=== PATIENT | male | born 1985 | race Caucasian/White ===

== ENCOUNTER → 2018-05-05 07:41 | Outpatient (CLI) | payer OTHER, SELFPAY ==
--- NOTE | 2018-05-05 07:43 | DI.US.S_ITS ---
PROCEDURE: US CHEST COMPARISON: None. INDICATIONS: LUMP LEFT/MID BACK FINDINGS: Complex, predominantly solid oblong soft tissue mass present corresponding to the palpable abnormality within the left medial mid back measuring 3.4 x 0.8 x 3.4 cm. No vascularity is present. IMPRESSION: Nonspecific complex, predominantly solid-appearing subcutaneous soft tissue mass corresponding to the palpable abnormality. Differential would include both benign and malignant etiology. Recommend dermatology consultation and clinical management. Dictated by: Herminio BRANCH Interpreted: Christopher Geronimo MD on 05/05/2018 at 8:25 Approved by: Christopher Geronimo M.D. on 05/05/2018 at 11:27
== END ==
PROVIDERS: Visit Provider Registered Nurse
DX: D17.1 Benign lipomatous neoplasm of skin and subcutaneous tissue of trunk (principal)
CPT/HCPCS: 76604

== ENCOUNTER → 2019-06-13 07:01 | Outpatient (CLI) | payer OTHER, SELFPAY ==
[2019-06-13 08:00] LABS: Alanine Aminotransferase 83 IU/L (21-72); Albumin 5.1 g/dL (3.5-5.0); Albumin Globulin Ratio 1.8 (1.0-2.8); Alkaline Phosphatase 70 U/L (38-126); Aspartate Aminotransferase 44 IU/L (17-59); Bilirubin Total 0.7 mg/dL (0.2-1.3); Blood Urea Nitrogen 16 mg/dL (9-20); Calcium 10.1 mg/dL (8.4-10.2); Carbon Dioxide 30 mmol/L (22-32); Chloride 100 mmol/L (98-107); Cholesterol 210 mg/dL (140-199); Estimated Glomerular Filt Rate > 60.0 mL/min (>60); Globulin 2.8 g/dL (1.7-4.1); Glucose 117 mg/dL (70-100); HDL Cholesterol 50 mg/dL (40-60); HEMOLYSIS < 15 (0-50); LDL Cholesterol Calculated 142 mg/dL (<100); Potassium 4.2 mmol/L (3.4-5.1); Sodium 141 mmol/L (137-145); Total Protein 7.9 g/dL (6.3-8.2); Triglycerides 91 mg/dL (35-150)
== END ==
PROVIDERS: PCP Family Medicine; Visit Provider Family Medicine
DX: E78.5 Hyperlipidemia, unspecified (principal)
CPT/HCPCS: 36415; 80053; 80061

== ENCOUNTER → 2019-06-20 16:19 | Outpatient (CLI) | payer OTHER, SELFPAY ==
[2019-06-20 16:44] LABS: Hemoglobin A1C% w Est Avg Glu 5.1 % (4.0-6.0)
== END ==
PROVIDERS: PCP Family Medicine; Visit Provider Family Medicine
DX: R73.09 Other abnormal glucose (principal)
CPT/HCPCS: 36415; 83036

== ENCOUNTER → 2020-07-04 11:45 | Outpatient (CLI) | payer OTHER, SELFPAY ==
[2020-07-04 13:51] LABS: COVID19 -Nasal RAPID Negative (Negative)
== END ==
PROVIDERS: PCP Family Medicine; Visit Provider Physician Assistant
DX: Z03.818 Encounter for observation for suspected exposure to other biological agents ruled out (principal)
CPT/HCPCS: 87635

== ENCOUNTER → 2020-07-09 10:01 | Outpatient (CLI) | payer OTHER, SELFPAY ==
[2020-07-09 12:02] LABS: COVID19 -Nasal RAPID Negative (Negative)
== END ==
PROVIDERS: PCP Family Medicine; Visit Provider Physician Assistant
DX: Z03.818 Encounter for observation for suspected exposure to other biological agents ruled out (principal)
CPT/HCPCS: 87635

== ENCOUNTER → 2020-11-19 16:15 | Outpatient (CLI) | payer OTHER, SELFPAY ==
--- NOTE | 2020-11-19 16:16 | DI.RAD.S_ITS ---
PROCEDURE: XR KNEE LT 3V INDICATIONS: lump of left knee TECHNIQUE: 3 views of the knee were acquired. COMPARISON: None. FINDINGS: Bones: No fractures or dislocations. No suspicious bony lesions. Soft tissues: No joint effusion. No suspicious soft tissue calcifications. IMPRESSION: No definite radiographic abnormality. If pain persists with conservative management, consider cross sectional imaging such as CT or MRI for further assessment. Dictated by: Herminio Elaine [facility] Interpreted: Roland Mei MD on 11/19/2020 at 16:38 Approved by: Roland Mei M.D. on 11/21/2020 at 10:18
== END ==
PROVIDERS: PCP Family Medicine; Referring Provider Registered Nurse; Visit Provider Registered Nurse
DX: M25.562 Pain in left knee (principal); R22.42 Localized swelling, mass and lump, left lower limb
CPT/HCPCS: 73562

== ENCOUNTER → 2020-12-31 16:09 | Outpatient (CLI) | payer OTHER, SELFPAY ==
--- NOTE | 2020-12-31 | DI.MRI.S_ITS ---
PROCEDURE: MR LUMBAR SPINE WO CON INDICATIONS: Other intervertebral disc displacement TECHNIQUE: Noncontrast sagittal T1 spin echo and T2 fast echo, sagittal STIR, axial T1 and T2 fast spin echo through the lumbar spine. In cases with scoliosis, additional coronal T2 fast spin echo may be performed. COMPARISON: [facility], MR, L-SPINE WITHOUT CONTRAST, 11/16/2009, 9:02. FINDINGS: Image quality: Excellent. Alignment and Curvature: There is normal bony alignment. Bone Marrow: Marrow is of normal overall signal. No acute vertebral body compression fractures. Spinal Cord: Conus medullaris terminates at the L1 level. Visualized cord demonstrates normal signal and size. Paraspinous Soft Tissues: No paravertebral masses. T12-L1: Normal appearance. L1-L2: Moderate loss of disc height is seen. Loss of disc signal is seen. Mild generalized disc bulge is seen. No significant neural foraminal or central canal narrowing can be seen. These imaging findings have progressed compared to the prior study. L2-L3: Normal appearance. L3-L4: Normal appearance. L4-L5: The disc height and disk signal are well-preserved. Mild generalized disc bulge is seen. Mild facet joint hypertrophy is seen. There is mild left-sided and no significant right-sided neural foraminal narrowing seen. Mild central canal narrowing is seen. There is slight progression compared to 2009. L5-S1: Moderate loss of disc height is seen. Loss of disc signal is seen. Moderate disc bulge is seen, with a central/left disc protrusion. Mild facet joint hypertrophy is seen. There is mild right-sided and no significant left-sided neural foraminal narrowing seen. Minimal central canal narrowing is seen. These imaging findings have progressed compared to the prior study. 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 Dictated by: Rei Corcoran M.D. on 12/31/2020 at 16:53 Approved by: Rei Corcoran M.D. on 12/31/2020 at 16:56
--- NOTE | 2020-12-31 16:10 | DI.MRI.S_ITS ---
PROCEDURE: MR KNEE LT WO CON INDICATIONS: left knee pain TECHNIQUE: Noncontrast sagittal PD fast spin echo and T2 fast spin echo with fat saturation, sagittal 3-D FLASH with fat saturation; coronal T1 spin echo and PD fast spin echo with fat saturation, and axial PD fast spin echo with fat saturation through the knee. COMPARISON: None. FINDINGS: Exam degraded by mild motion artifact. Menisci: Medial meniscus intact. Lateral meniscus intact. Cruciate ligaments: Anterior cruciate ligament appears intact. Posterior cruciate ligament appears intact. Medial structures: Mild intrasubstance signal changes thickening and adjacent soft tissue edema involving the ACL. There is focal fluid collection measuring 0.9 x 1.1 cm seen adjacent to the semimembranosus, and extending to the distal pes anserinus insertion. Semimembranosus tendon appears intact. Visualized portions of the pes anserinus tendons appear grossly. Lateral structures: The lateral collateral ligament intact. Biceps femoris tendon appears intact. Popliteus tendon grossly unremarkable. Iliotibial band appears intact. Anterior structures: Minimal distal quadriceps tendinopathy. Medial and lateral patellofemoral ligaments intact. There is mild patellar tendinopathy. Prepatellar and superficial infrapatellar subcutaneous edema/fluid. Bones and cartilage: Marrow: No focal marrow contusion or discrete low signal fracture line. Medial compartment: No focal cartilage defect. Lateral compartment: No focal cartilage defect. Patellofemoral compartment: Mild surface fraying of the cartilage overlying the lateral patellar facet. Femoral trochlear cartilage appears grossly intact. Joint space: No joint effusion. Trace fluid between the semimembranosus and medial gastrocnemius tendons without definite formed cyst. No specific evidence of intra-articular loose body. IMPRESSION: Signal change in and adjacent edema suggestive of low-grade MCL sprain. Somewhat focal fluid collection with adjacent scattered free fluid adjacent to the semimembranosus tendon. Differential includes sequela of partially ruptured or complex Harp's cyst, semimembranosus-tibial collateral (SM-TCL) ligament bursitis. Or, partially ruptured ganglion cysts. Please correlate to exam findings. Mild patellofemoral chondromalacia Dictated by: Christopher Geronimo M.D. on 01/01/2021 at 8:54 Approved by: Christopher Geronimo M.D. on 01/01/2021 at 9:01
== END ==
PROVIDERS: PCP Family Medicine; Referring Provider Registered Nurse; Visit Provider Registered Nurse
DX: M25.562 Pain in left knee (principal); M22.42 Chondromalacia patellae, left knee; M51.26 Other intervertebral disc displacement, lumbar region; M47.816 Spondylosis without myelopathy or radiculopathy, lumbar region; M47.817 Spondylosis without myelopathy or radiculopathy, lumbosacral region
CPT/HCPCS: 72148; 73721

== ENCOUNTER → 2023-03-06 08:24 | Outpatient (CLI) | payer OTHER, SELFPAY ==
[2023-03-06 10:20] LABS: Alanine Aminotransferase 33 IU/L (<50); Albumin 4.4 g/dL (3.5-5.0); Albumin Globulin Ratio 1.8 (1.0-2.8); Alkaline Phosphatase 65 U/L (38-126); Aspartate Aminotransferase 32 IU/L (17-59); BUN Creatinine Ratio 14.6 (6-22); Bilirubin Total 0.9 mg/dL (0.2-1.3); Blood Urea Nitrogen 12 mg/dL (9-20); Calcium 9.2 mg/dL (8.4-10.2); Carbon Dioxide 30 mmol/L (22-32); Chloride 103 mmol/L (98-107); Cholesterol 167 mg/dL (140-199); Estimated Glomerular Filt Rate > 60 mL/min (>60); Globulin 2.5 g/dL (1.7-4.1); Glucose 93 mg/dL (70-100); HDL Cholesterol 46 mg/dL (40-60); HEMOLYSIS < 15 (0-50); LDL Cholesterol Calculated 106 mg/dL (<100); Potassium 4.4 mmol/L (3.4-5.1); Sodium 139 mmol/L (137-145); Total Protein 6.9 g/dL (6.3-8.2); Triglycerides 76 mg/dL (35-150)
[2023-03-06 10:51] LABS: Testosterone 596 ng/dL (132-813)
[2023-03-07 09:30] LABS: Labcorp Hemoglobin (Hb) A1c 5.4 % (4.8-5.6)
== END ==
PROVIDERS: PCP Family Medicine; Referring Provider Family Medicine; Visit Provider Family Medicine
DX: E66.9 Obesity, unspecified (principal); E78.5 Hyperlipidemia, unspecified
CPT/HCPCS: 36415; 80053; 80061; 83036; 84403

== ENCOUNTER → 2024-09-24 08:44 | Outpatient (CLI) | payer OTHER, SELFPAY ==
[2024-09-24 09:41] LABS: Hematocrit 46.2 % (41-53); Hemoglobin 15.8 g/dL (13.5-17.5); Mean Corpuscular HGB Conc 34.1 % (30-36); Mean Corpuscular Hemoglobin 31.5 PG (26-34); Mean Corpuscular Volume 92.5 fL (80-100); Platelet Count 217 X10^3/uL (150-400); Red Cell Distribution Width 12.9 % (11.6-14.8); White Blood Cell Count 7.3 X10^3/uL (4.5-11.0)
[2024-09-24 09:54] LABS: Hemoglobin A1C% w Est Avg Glu 5.2 % (4.0-6.0)
[2024-09-24 09:56] LABS: Alanine Aminotransferase 34 IU/L (<50); Alkaline Phosphatase 79 U/L (38-126); Aspartate Aminotransferase 30 IU/L (17-59); BUN Creatinine Ratio 17.8 (6-22); Bilirubin Total 0.4 mg/dL (0.2-1.3); Blood Urea Nitrogen 16 mg/dL (9-20); Calcium 9.8 mg/dL (8.4-10.2); Chloride 105 mmol/L (98-107); Cholesterol 216 mg/dL (140-199); Estimated Glomerular Filt Rate > 60 mL/min (>60); Glucose 152 mg/dL (70-100); HDL Cholesterol 50 mg/dL (40-60); HEMOLYSIS < 15 (0-50); LDL Cholesterol Calculated 132 mg/dL (<100); Potassium 4.4 mmol/L (3.4-5.1); Sodium 140 mmol/L (137-145); Triglycerides 171 mg/dL (35-150)
[2024-09-24 09:57] LABS: Albumin 4.8 g/dL (3.5-5.0); Albumin Globulin Ratio 1.8 (1.0-2.8); Carbon Dioxide 26 mmol/L (22-32); Globulin 2.6 g/dL (1.7-4.1); Total Protein 7.4 g/dL (6.3-8.2)
[2024-09-24 10:28] LABS: TSH w/ Reflex to FT4 0.89 uIU/mL (0.47-4.68)
[2024-09-24 10:29] LABS: Testosterone 535 ng/dL (132-813)
== END ==
PROVIDERS: PCP Family Medicine; Referring Provider Family Medicine; Visit Provider Family Medicine
DX: Z00.00 Encounter for general adult medical examination without abnormal findings (principal); E78.5 Hyperlipidemia, unspecified; N52.9 Male erectile dysfunction, unspecified; E66.9 Obesity, unspecified; Z82.49 Family history of ischemic heart disease and other diseases of the circulatory system; R73.01 Impaired fasting glucose; G47.33 Obstructive sleep apnea (adult) (pediatric); R53.82 Chronic fatigue, unspecified
CPT/HCPCS: 36415; 80053; 80061; 83036; 84403; 84443; 85027; 86803; 87389

== ENCOUNTER → 2024-12-26 10:55 | Outpatient (CLI) | payer OTHER, SELFPAY ==
[2024-12-26 12:02] LABS: Add Manual Diff / Slide Review NO; Basophils Absolute Auto 0 /uL (0-100); Basophils Percent Auto 0.3 % (0-2); Eosinophils Absolute Auto 100 /uL (0-450); Eosinophils Percent Auto 2.3 % (2-4); Hematocrit 45.1 % (41-53); Hemoglobin 15.4 g/dL (13.5-17.5); Lymphocytes Absolute Auto 1700 /uL (1100-4500); Lymphocytes Percent Auto 26.1 % (25-40); Mean Corpuscular HGB Conc 34.3 % (30-36); Mean Corpuscular Hemoglobin 31.4 PG (26-34); Mean Corpuscular Volume 91.7 fL (80-100); Monocytes Absolute Auto 400 /uL (0-900); Monocytes Percent Auto 5.5 % (3-14); Neutrophils Absolute Auto 4200 /uL (1500-7000); Neutrophils Percent Auto 65.8 % (50-75); Platelet Count 216 X10^3/uL (150-400); Red Blood Cell Count 4.92 X10^6/uL (4.5-5.9); Red Cell Distribution Width 13.3 % (11.6-14.8); White Blood Cell Count 6.4 X10^3/uL (4.5-11.0)
[2024-12-26 12:28] LABS: Alanine Aminotransferase 25 IU/L (<50); Albumin 5.1 g/dL (3.5-5.0); Alkaline Phosphatase 69 U/L (38-126); Aspartate Aminotransferase 30 IU/L (17-59); Bilirubin Total 0.5 mg/dL (0.2-1.3); Blood Urea Nitrogen 13 mg/dL (9-20); Carbon Dioxide 25 mmol/L (22-32); Chloride 103 mmol/L (98-107); Estimated Glomerular Filt Rate > 60 mL/min (>60); Globulin 2.6 g/dL (1.7-4.1); Glucose 110 mg/dL (70-99); HEMOLYSIS < 15 (0-50); Lipase 286 U/L (23-300); Potassium 4.3 mmol/L (3.4-5.1); Sodium 141 mmol/L (137-145); Total Protein 7.7 g/dL (6.3-8.2)
== END ==
PROVIDERS: PCP Family Medicine; Referring Provider Family Medicine; Visit Provider Family Medicine
DX: R63.4 Abnormal weight loss (principal); R10.9 Unspecified abdominal pain
CPT/HCPCS: 36415; 80053; 83690; 85025

== ENCOUNTER → 2024-12-30 07:48 | Outpatient (CLI) | payer OTHER, SELFPAY ==
--- NOTE | 2024-12-30 07:50 | DI.CT.S_ITS ---
PROCEDURE: CT CHEST ABD PEL W CON INDICATIONS: unexpected wt loss, abd pain TECHNIQUE: After the administration of intravenous contrast, 5 mm thick sections acquired from the lung apices to the symphysis. 5 mm coronal and sagittal reformats were performed, with additional 7 mm MIP reformats through the lungs. For radiation dose reduction, the following was used: automated exposure control, adjustment of mA and/or kV according to patient size. COMPARISON: None. FINDINGS: Image quality: Excellent. CHEST: Lower Neck: No enlarged lymph nodes. Thyroid: Normal CT appearance. Axillae: No enlarged lymph nodes. Chest Wall: No suspicious chest wall lesions. Lungs and Pleura: Small calcified left upper lobe nodule. Otherwise clear lungs. No ground-glass opacities or consolidations. No pleural effusions or pleural calcification. Central and peripheral airways are normal without bronchial wall thickening or bronchiectasis. Heart: Heart size is normal. No pericardial effusion. Thoracic Vessels: The aorta and pulmonary arteries demonstrate normal size. Mediastinum and Eysy: No enlarged lymph nodes. Esophagus: No wall thickening. No hiatal hernia. ABDOMEN: Liver: No solid mass. Gallbladder: No wall thickening or calcified stones. Biliary ducts: No biliary dilation. Pancreas: No ductal dilation. Spleen: Size is within normal limits. Adrenal Glands: No adrenal nodules. Kidneys and Ureters: Symmetric enhancement. No nephrolithiasis or hydronephrosis. No visible mass or cyst requiring follow up. No hydroureter. Stomach and Bowel: The stomach is partially decompressed. Small bowel loops are normal caliber without significant wall thickening, dilatation, or visible stricture. Normal appendix. Normal quantity of colonic stool. No suspicious colon wall thickening or inflammation. Moderate length segment of circumferential rectal wall thickening without perirectal inflammation. Peritoneum: No abnormal intraperitoneal fluid. No free air. Ventral Wall: No significant ventral hernia. Abdominal Nodes: There is haziness involving the mesenteric fat and numerous borderline mesenteric lymph nodes present. None are pathologically enlarged. Several normal size retroperitoneal lymph nodes are present. Vessels: The abdominal aorta, IVC, and portal vein are of normal caliber. PELVIS: Pelvic Organs: Mild prostatomegaly. Normal seminal vesicles. Bladder: No bladder wall thickening, accounting for underdistention. Pelvic Nodes: No enlarged lymph nodes. Miscellaneous: No inguinal hernias are seen. Bones: No aggressive osseous abnormality. IMPRESSION: Circumferential wall thickening and of the rectum is most likely due to decompression and redundant mucosa. Clinical correlation suggested. Haziness and borderline adenopathy in the small bowel mesentery. This may be reactive to enteritis, or evidence of systemic process such as lymphoma. Correlate with any pertinent lab values. For further evaluation of bowel loops, CT or MR enterography may be helpful. Dictated by: Therese Bunch M.D. on 12/30/2024 at 15:10 Approved by: Therese Bunch M.D. on 12/30/2024 at 15:23
== END ==
LOC: CT 07:49
PROVIDERS: PCP Family Medicine; Referring Provider Family Medicine; Visit Provider Family Medicine
DX: N40.0 Benign prostatic hyperplasia without lower urinary tract symptoms (principal); R63.4 Abnormal weight loss; R10.9 Unspecified abdominal pain; R91.1 Solitary pulmonary nodule
CPT/HCPCS: 71260; 74177; Q9967

== ENCOUNTER → 2025-01-06 18:06 | Outpatient (CLI) | payer OTHER, SELFPAY ==
--- NOTE | 2025-01-06 18:08 | DI.MRI.S_ITS ---
PROCEDURE: MR ENTEROGRAPHY PROTOCOL INDICATIONS: wt loss, thickened rectal wall TECHNIQUE: After the ingestion of oral contrast, coronal and axial HASTE, coronal 2-D FLASH in-and [id number] sequences. After the administration of contrast, coronal and axial VIBE or 2-D FLASH with fat saturation sequences acquired through the abdomen and pelvis. Optional diffusion weighted imaging and ADC may be performed. COMPARISON: [facility], CT, CT CHEST ABD PEL W CON, 12/30/2024, 7:58. FINDINGS: Image quality: Excellent. Bowel and peritoneum: Duodenal and jejunal loops are normal in mucosal pattern and wall thickness. The fluid-filled ileal loops appear normal. Distal ileal loops are decompressed. No suspicious wall thickening or fibrosis. A normal appendix is seen. The colon contains normal quantity of stool. There is a short segment of circumferential redundant mucosa without significant enhancement in the distal rectum just above the sphincter. No intraperitoneal free fluid or fluid collections. No suspicious peritoneal nodularity. Lung bases: Unremarkable. Liver: No solid mass. Gallbladder: No stones or wall thickening. Biliary ducts: No biliary dilation. No evidence of PSC. Pancreas: No ductal dilation. Spleen: Size is within normal limits. Adrenal Glands: No adrenal nodules. Kidneys and Ureters: No hydronephrosis. No solid mass. No complex renal cystic lesion which requires follow up. Ventral Wall: No hernia. Abdominal Nodes: No retroperitoneal or mesenteric adenopathy by size criteria. No significant mesenteric adenopathy. Vessels: Aorta and inferior vena cava are normal in size. Pelvis: No pelvic mass. Normal urinary bladder. Nondistended distal ureters. Bones: No aggressive osseous abnormality. IMPRESSION: Short segment of distal rectal wall thickening may indicate internal hemorrhoids. Clinical correlation and/or proctoscopy recommended. No other abnormalities involving large or small bowel loops. Dictated by: Therese Bunch M.D. on 01/09/2025 at 10:02 Approved by: Therese Bunch M.D. on 01/09/2025 at 10:16
== END ==
LOC: MRI 18:06
PROVIDERS: PCP Family Medicine; Referring Provider Family Medicine; Visit Provider Family Medicine
DX: R63.4 Abnormal weight loss (principal); R10.9 Unspecified abdominal pain
CPT/HCPCS: 72197; 74183; A9579